=== PATIENT | male | born 1970 | race Caucasian/White ===

== ENCOUNTER 2016-12-14 20:00 | Emergency (ER) | payer OTHER ==
--- NOTE | 2016-12-14 22:42 | ED NURSING NOTES ---
Clinical Report - Nurses [facility] [address] [place] [address] 12/14/2016 20:01 Patient: JASBIR SALVADOR TRIAGE Triage time 20:Dec 14 2016. Acuity: LEVEL 3. Chief Complaint: (Might be HIV (+)). Alert. EVER COMA SCORE: Ever Coma Scale: 15- eyes open spontaneously (4); best verbal response- oriented x 4 (5); best motor response- obeys commands (6). --20:38 Peter Herring R.N. Alert. EVER COMA SCORE: Ever Coma Scale: 15- eyes open spontaneously (4); best verbal response- oriented x 4 (5); best motor response- obeys commands (6). --20:42 Peter Herring R.N. 20:40 12/14/16. BP: 129/93. HR: 90. RR: 16. O2 saturation: 97%. Temp: 97.5 F (oral). Pain level now: 08/10. Additional comments: Generalized pains. --20:42 Peter Herring R.N. Weight: 98.8 kg. Height/Length: 69 inches Per Patient. BMI: 32.2. --20:28 Peter Herring R.N. Medications Lipitor Oral 60 mg, at bedtime. Prazosin HCl Oral 2 mg, daily. --20:32 Peter Herring R.N. CarBAMazepine Oral 400 mg, 2x a day. --20:33 Peter Herring R.N. Zoloft Oral 50 mg, daily. --20:33 Peter Herring R.N. Strattera Oral uncertain (?). --20:33 Peter Herring R.N. GuaiFENesin ER Oral. --20:34 Peter Herring R.N. Aspirin Oral (Tablet 81 mg) 1 tablet, daily. --20:36 Peter Herring R.N. Cialis Oral (Tablet 5 mg) 1 tablet, daily. --20:44 Peter Herring R.N. Allergies Wellbutrin. Definite Severe (seizures) --20:38 Peter Herring R.N. Medication/allergy information source: the patient. --20:38 Peter Herring R.N. History Arrived by private vehicle. Historian: patient. Unaccompanied. Primary physician (Gilda Pangh). ( Told by his roommate that the girlfriend, whom he has intimate with, is HIV (+).). Onset. (about 1 hour ago). Treatment COMMERCIAL GLAZIER: None. PAST MEDICAL HX: Benign prostatic hypertrophy. Immunizations: up-to-date. SOCIAL HX: Heavy tobacco smoker- 1 pack per day. No alcohol use or drug use. No infectious disease exposure. ABUSE ASSESSMENT: No report of abuse. FALL RISK ASSESSMENT: Fall risk assessment completed. No fall risk identified. NUTRITIONAL RISK ASSESSMENT: The nutritional risk assessment revealed no deficiencies. FUNCTIONAL ASSESSMENT: Functional assessment: no impairments noted. LEARNING NEEDS ASSESSMENT: The learning needs assessment revealed no barriers. SKIN INTEGRITY ASSESSMENT: Skin integrity risk assessment completed. No skin integrity risk identified. --20:38 Peter Herring R.N. ( Pt states that he last had sex with his girlfriend was a week ago.). --22:47 Peter Herring R.N. PROBLEMS: Myocardial Infarction. Seizure. CVA - Cerebrovascular Accident. --20:32 Peter Herring R.N. ADDITIONAL SURGERIES: Inguinal Hernia Repair. --20:32 Peter Herring R.N. Interventions ID and allergy band on patient. To treatment room. --20:38 Peter Herring R.N. PHYSICAL ASSESSMENT Ambulatory to room. GENERAL / NEURO / PSYCH: Alert. Oriented X 4. HEENT: Mucous membranes are pink. RESPIRATORY: Respirations not labored. CVS: Normal heart rate and rhythm. Capillary refill less than 2 seconds. GI / : Abdomen soft and nontender. SKIN: Skin is warm and dry. --20:43 Peter Herring R.N. NURSING PROGRESS NOTES Patient gowned. Reassurance given. Patient identifiers checked. Call light placed in reach. Side rails up x 1. Bed placed in lowest position. Brakes of bed on. Patient ready for evaluation- chart flagged and ED physician notified. --20:43 Peter Herring R.N. 22:46. The patient is calm and resting quietly. Overall patient status- he states feels better. SKIN: Skin is warm and dry. Skin color within normal limits. --22:49 Peter Frances R.N. DISPOSITION / DISCHARGE Departure time: 22:49. Condition at departure: stable. No learning barriers present. Discharge instructions provided and reviewed with the patient. Patient verbalized understanding. Written instructions provided in Albanian. The patient was discharged home and accompanied by softball umpire. He left the Emergency Department ambulatory and via private vehicle. [employer] Catcher driving. FALL RISK ASSESSMENT: Fall risk assessment completed. No fall risk identified. --22:49 Peter Frances R.N. 22:41 12/14/16. BP: 140/91. HR: 70. RR: 14. O2 saturation: 97% on room air. Pain level now: 0/10. --22:49 Peter Frances R.N. Locked/Released at 12/14/2016 22:49 by Peter Frances R.N.
--- NOTE | 2016-12-14 22:42 | ED NURSING NOTES ---
Clinical Report - Nurses [facility] [address] [place] [address] 12/14/2016 20:01 Patient: JASBIR SALVADOR TRIAGE Triage time 20:Dec 14 2016. Acuity: LEVEL 3. Chief Complaint: (Might be HIV (+)). Alert. EVER COMA SCORE: Ever Coma Scale: 15- eyes open spontaneously (4); best verbal response- oriented x 4 (5); best motor response- obeys commands (6). --20:38 Peter Herring R.N. Alert. EVER COMA SCORE: Ever Coma Scale: 15- eyes open spontaneously (4); best verbal response- oriented x 4 (5); best motor response- obeys commands (6). --20:42 Peter Herring R.N. 20:40 12/14/16. BP: 129/93. HR: 90. RR: 16. O2 saturation: 97%. Temp: 97.5 F (oral). Pain level now: 08/10. Additional comments: Generalized pains. --20:42 Peter Herring R.N. Weight: 98.8 kg. Height/Length: 69 inches Per Patient. BMI: 32.2. --20:28 Peter Herring R.N. Medications Lipitor Oral 60 mg, at bedtime. Prazosin HCl Oral 2 mg, daily. --20:32 Peter Herring R.N. CarBAMazepine Oral 400 mg, 2x a day. --20:33 Peter Herring R.N. Zoloft Oral 50 mg, daily. --20:33 Peter Herring R.N. Strattera Oral uncertain (?). --20:33 Peter Herring R.N. GuaiFENesin ER Oral. --20:34 Peter Herring R.N. Aspirin Oral (Tablet 81 mg) 1 tablet, daily. --20:36 Peter Herring R.N. Cialis Oral (Tablet 5 mg) 1 tablet, daily. --20:44 Peter Herring R.N. Allergies Wellbutrin. Definite Severe (seizures) --20:38 Peter Herring R.N. Medication/allergy information source: the patient. --20:38 Peter Herring R.N. History Arrived by private vehicle. Historian: patient. Unaccompanied. Primary physician (Gilda Pangh). ( Told by his roommate that the girlfriend, whom he has intimate with, is HIV (+).). Onset. (about 1 hour ago). Treatment CLIENT TECHNICAL SUPPORT ASSOCIATE: None. PAST MEDICAL HX: Benign prostatic hypertrophy. Immunizations: up-to-date. SOCIAL HX: Heavy tobacco smoker- 1 pack per day. No alcohol use or drug use. No infectious disease exposure. ABUSE ASSESSMENT: No report of abuse. FALL RISK ASSESSMENT: Fall risk assessment completed. No fall risk identified. NUTRITIONAL RISK ASSESSMENT: The nutritional risk assessment revealed no deficiencies. FUNCTIONAL ASSESSMENT: Functional assessment: no impairments noted. LEARNING NEEDS ASSESSMENT: The learning needs assessment revealed no barriers. SKIN INTEGRITY ASSESSMENT: Skin integrity risk assessment completed. No skin integrity risk identified. --20:38 Peter Herring R.N. ( Pt states that he last had sex with his girlfriend was a week ago.). --22:47 Peter Herring R.N. PROBLEMS: Myocardial Infarction. Seizure. CVA - Cerebrovascular Accident. --20:32 Peter Herring R.N. ADDITIONAL SURGERIES: Inguinal Hernia Repair. --20:32 Peter Herring R.N. Interventions ID and allergy band on patient. To treatment room. --20:38 Peter Herring R.N. PHYSICAL ASSESSMENT Ambulatory to room. GENERAL / NEURO / PSYCH: Alert. Oriented X 4. HEENT: Mucous membranes are pink. RESPIRATORY: Respirations not labored. CVS: Normal heart rate and rhythm. Capillary refill less than 2 seconds. GI / : Abdomen soft and nontender. SKIN: Skin is warm and dry. --20:43 Peter Herring R.N. NURSING PROGRESS NOTES Patient gowned. Reassurance given. Patient identifiers checked. Call light placed in reach. Side rails up x 1. Bed placed in lowest position. Brakes of bed on. Patient ready for evaluation- chart flagged and ED physician notified. --20:43 Peter Herring R.N. 22:46. The patient is calm and resting quietly. Overall patient status- he states feels better. SKIN: Skin is warm and dry. Skin color within normal limits. --22:49 Peter Frances R.N. DISPOSITION / DISCHARGE Departure time: 22:49. Condition at departure: stable. No learning barriers present. Discharge instructions provided and reviewed with the patient. Patient verbalized understanding. Written instructions provided in Korean. The patient was discharged home and accompanied by accreditation specialist. He left the Emergency Department ambulatory and via private vehicle. Pond Sawyer driving. FALL RISK ASSESSMENT: Fall risk assessment completed. No fall risk identified. --22:49 Peter Frances R.N. 22:41 12/14/16. BP: 140/91. HR: 70. RR: 14. O2 saturation: 97% on room air. Pain level now: 0/10. --22:49 Peter Frances R.N. Locked/Released at 12/14/2016 22:49 by Peter Frances R.N.
--- NOTE | 2016-12-14 22:42 | ED ORDER SUMMARY ---
..... Patient: JASBIR SALVADOR OrderSheet [facility] VisitID: [id number] [address] [place] [address] 46y, M Registration Date/Time: 12/14/2016 ORDER SHEET Weight: 98.8 kg Allergies: Wellbutrin GENERAL ORDERS: HIV I and II Urgent (21:01 12/14/2016 Karlie A.R.N.P.) ([facility] 21:10 Rashmi) (22:34 Jessenia Talavera) MEDICATION ORDERS: IV FLUIDS: ORDER SHEET NOTES: [Electronically signed by Peter Frances R.N. (22:49 12/14/2016)] [Electronically signed by Yuni LopezN.POdette (23:02 12/14/2016)] [Electronically locked/signed by Peter Frances R.N. (22:49 12/14/2016)]
--- NOTE | 2016-12-14 22:42 | ED ORDER SUMMARY ---
..... Patient: JASBIR SALVADOR OrderSheet [facility] VisitID: [id number] [address] [place] [address] 46y, M Registration Date/Time: 12/14/2016 ORDER SHEET Weight: 98.8 kg Allergies: Wellbutrin GENERAL ORDERS: HIV I and II Urgent (21:01 12/14/2016 Karlie A.R.N.P.) ([facility] 21:10 Rashmi) (22:34 Jessenia Talavera) MEDICATION ORDERS: IV FLUIDS: ORDER SHEET NOTES: [Electronically signed by Peter Frances R.N. (22:49 12/14/2016)] [Electronically signed by Yuni LopezN.POdette (23:02 12/14/2016)] [Electronically locked/signed by Peter Frances R.N. (22:49 12/14/2016)]
--- NOTE | 2016-12-14 22:42 | ED CLINICAL REPORT ---
Clinical Report - Physicians/Mid Levels [facility] [address] [place] [address] 12/14/2016 20:01 Patient: JASBIR SALVADOR Time Seen: 20:56; initial patient contact, initial documentation, patient care assumed. Arrived- By private vehicle. Historian- patient. HISTORY OF PRESENT ILLNESS Chief Complaint: (std testing). This started just prior to arrival. No penile discharge, discomfort with urination, urinary frequency, genital lesion or testicular pain. No urgency of urination or flank pain. The patient has had unprotected intercourse with a single partner several times. (having unprotected intercourse with same female partner for over a year, found out this evening that she is hiv pos, would like testing for hiv). Similar symptoms previously: None. Recent medical care: Not recently seen/assessed. REVIEW OF SYSTEMS No fever, abdominal pain, vomiting or diarrhea. All systems otherwise negative, except as recorded above. PAST HISTORY See nurses notes. ( PROBLEMS: Myocardial Infarction. Seizure. CVA - Cerebrovascular Accident. --20:32 Peter Herring, R.N. ADDITIONAL SURGERIES: Inguinal Hernia Repair. --20:32 Peter Herring, R.N.). SOCIAL HISTORY Heavy tobacco smoker. No alcohol use or drug use. No recent travel. Is a local resident. FAMILY HISTORY Negative. ADDITIONAL NOTES The nursing notes have been reviewed with agreement regarding the chief complaint, HPI, ROS, PMH and patient medications and allergies. PHYSICAL EXAM Vital Signs: 12/14/2016 20:40 BP: 129/93. HR: 90. RR: 16. O2 saturation: 97%. Temp: 97.5 F. Pain level now: 08/10. Have been reviewed as normal and appear to be correct. Appearance: Alert. Oriented X3. No acute distress. ENT: Normal external inspection. Pharynx normal. Neck: Neck supple. CVS: Heart sounds normal. Respiratory: No respiratory distress. Breath sounds normal. Abdomen: Soft and nontender. Mildly obese. Back: Normal external inspection. Skin: Skin warm and dry. Normal skin color. No rash. Normal skin turgor. Extremities: Extremities exhibit normal ROM. No lower extremity edema. Neuro: Oriented X 3. No motor deficit. No sensory deficit. LABS, X-RAYS, AND EKG Laboratory Tests: [id number]: (JOAQUIN: 12/14/2016 21:20) ( MsgRcvd 12/14/2016 22:23) Final results Test Result Flag Units (Reference) HIV-1 P24 ANTIGEN NEGATIVE (NEGATIVE) HIV-1 AND OR HIV-2 ANTIBODY NEGATIVE (NEGATIVE) . PROGRESS AND PROCEDURES Patient counseled in person regarding the patient's stable condition, test results and diagnosis. 22:39. Differential Diagnosis: Other possible considerations: std, hiv. Above considerations are based on history, physical exam and laboratory data. Differential diagnosis was discussed with patient. Disposition: Discharged home in good and unchanged condition (22:42). Condition: good and stable. CLINICAL IMPRESSION Exposure to STD: HIV. INSTRUCTIONS No sexual contact. Warnings: GENERAL WARNINGS: Return or contact your physician immediately if your condition worsens or changes unexpectedly, if not improving as expected, or if other problems arise. Specifically return if problem worsens. Follow-up: Follow up with your doctor in about one week as needed. Call for an appointment. Summary of care provided to patient. Understanding of the discharge instructions verbalized by patient. (Electronically signed by Yuni Lopez A.R.N.P. 12/14/2016 23:02)
--- NOTE | 2016-12-14 22:42 | ED CLINICAL REPORT ---
Clinical Report - Physicians/Mid Levels [facility] [address] [place] [address] 12/14/2016 20:01 Patient: JASBIR SALVADOR Time Seen: 20:56; initial patient contact, initial documentation, patient care assumed. Arrived- By private vehicle. Historian- patient. HISTORY OF PRESENT ILLNESS Chief Complaint: (std testing). This started just prior to arrival. No penile discharge, discomfort with urination, urinary frequency, genital lesion or testicular pain. No urgency of urination or flank pain. The patient has had unprotected intercourse with a single partner several times. (having unprotected intercourse with same female partner for over a year, found out this evening that she is hiv pos, would like testing for hiv). Similar symptoms previously: None. Recent medical care: Not recently seen/assessed. REVIEW OF SYSTEMS No fever, abdominal pain, vomiting or diarrhea. All systems otherwise negative, except as recorded above. PAST HISTORY See nurses notes. ( PROBLEMS: Myocardial Infarction. Seizure. CVA - Cerebrovascular Accident. --20:32 Peter Herring, R.N. ADDITIONAL SURGERIES: Inguinal Hernia Repair. --20:32 Peter Herring, R.N.). SOCIAL HISTORY Heavy tobacco smoker. No alcohol use or drug use. No recent travel. Is a local resident. FAMILY HISTORY Negative. ADDITIONAL NOTES The nursing notes have been reviewed with agreement regarding the chief complaint, HPI, ROS, PMH and patient medications and allergies. PHYSICAL EXAM Vital Signs: 12/14/2016 20:40 BP: 129/93. HR: 90. RR: 16. O2 saturation: 97%. Temp: 97.5 F. Pain level now: 08/10. Have been reviewed as normal and appear to be correct. Appearance: Alert. Oriented X3. No acute distress. ENT: Normal external inspection. Pharynx normal. Neck: Neck supple. CVS: Heart sounds normal. Respiratory: No respiratory distress. Breath sounds normal. Abdomen: Soft and nontender. Mildly obese. Back: Normal external inspection. Skin: Skin warm and dry. Normal skin color. No rash. Normal skin turgor. Extremities: Extremities exhibit normal ROM. No lower extremity edema. Neuro: Oriented X 3. No motor deficit. No sensory deficit. LABS, X-RAYS, AND EKG Laboratory Tests: [id number]: (JOAQUIN: 12/14/2016 21:20) ( MsgRcvd 12/14/2016 22:23) Final results Test Result Flag Units (Reference) HIV-1 P24 ANTIGEN NEGATIVE (NEGATIVE) HIV-1 AND OR HIV-2 ANTIBODY NEGATIVE (NEGATIVE) . PROGRESS AND PROCEDURES Patient counseled in person regarding the patient's stable condition, test results and diagnosis. 22:39. Differential Diagnosis: Other possible considerations: std, hiv. Above considerations are based on history, physical exam and laboratory data. Differential diagnosis was discussed with patient. Disposition: Discharged home in good and unchanged condition (22:42). Condition: good and stable. CLINICAL IMPRESSION Exposure to STD: HIV. INSTRUCTIONS No sexual contact. Warnings: GENERAL WARNINGS: Return or contact your physician immediately if your condition worsens or changes unexpectedly, if not improving as expected, or if other problems arise. Specifically return if problem worsens. Follow-up: Follow up with your doctor in about one week as needed. Call for an appointment. Summary of care provided to patient. Understanding of the discharge instructions verbalized by patient. (Electronically signed by Yuni Lopez A.R.N.P. 12/14/2016 23:02)
--- NOTE | 2016-12-14 23:02 | ED MED RECONCILIATION SUMMARY ---
Patient: JASBIR SALVADOR Medication Reconciliation Report [facility] VisitID: [id number] [address] [place] [address] 46y, M Registration Date/Time: 12/14/2016 Weight: 98.8 kg Height/Length: 69 in. BMI: 32.2 ALLERGIES: Wellbutrin The patient's Home Medications are listed below: THE FOLLOWING MEDICATIONS NEED TO BE RECONCILED: Aspirin Oral (81 mg) 1 tablet, daily CarBAMazepine Oral 400 mg, 2x a day Cialis Oral (5 mg) 1 tablet, daily GuaiFENesin ER Oral Lipitor Oral 60 mg, at bedtime Prazosin HCl Oral 2 mg, daily Strattera Oral uncertain (?) Zoloft Oral 50 mg, daily The source(s) of the original Home Medication information: patient The following Medications were given to the patient in the Emergency Department: None. The following Medications were prescribed to the patient: None.
--- NOTE | 2016-12-14 23:02 | ED DISCHARGE INSTRUCTIONS ---
Patient: JASBIR SALVADOR General Instructions [facility] VisitID: [id number] [place] [address] 46y, M Registration Date/Time: 12/14/2016 Exposure to STD: HIV. INSTRUCTIONS No sexual contact. Warnings: GENERAL WARNINGS: Return or contact your physician immediately if your condition worsens or changes unexpectedly, if not improving as expected, or if other problems arise. Specifically return if problem worsens. Follow-up: Follow up with your doctor in about one week as needed. Call for an appointment. Summary of care provided to patient. Understanding of the discharge instructions verbalized by patient. ADDITIONAL INFORMATION STD, Suspected [R/O Gc & Chlamydia: Culture Only] Your symptoms suggest that you may have a STD (sexually transmitted disease). The most common bacteria that cause STD's are chlamydia and gonorrhea. Both are highly contagious and are passed by sexual contact with an infected partner. Symptoms begin within 1-3 weeks after exposure. There is usually a discharge from the penis or vagina and burning during urination. Many women with this infection will have only mild symptoms or no symptoms at all early in the disease. Culture tests have been taken. These will show if you have an infection with chlamydia or gonorrhea. This infection can be treated and cured with antibiotic medication. Home Care: 1) Avoid sexual activity until you know that your test result is negative. 2) If a culture was done and it is positive: Both you and your sexual partner need to be treated, even if your partner has no symptoms. Contact your doctor or go to an urgent care clinic or the Public Health Department to be examined and treated. Avoid sexual activity until both you and your partner have completed all antibiotic medicine and told that you are no longer contagious. Learn about safe sex practices and use these in the future. The safest sex is with a partner who has tested negative and only has sex with you. Condoms offer protection from spreading some sexually transmitted diseases including gonorrhea, chlamydia and HIV, but are not a guarantee. 3) Learn about safe sex practices and use these in the future. The safest sex is with a partner who has tested negative and only has sex with you. Condoms offer protection from spreading some sexually transmitted diseases including Gonorrhea, Chlamydia and HIV, but are not a guarantee. Follow Up with your doctor or as advised by our staff. You may call us in three days for the results of your culture, or as directed. If your culture test is positive and you are treated, another culture should be taken 4-6 weeks after treatment to be sure the infection has cleared. Follow up with your doctor or the Public Health Department for complete STD screening, including HIV testing. For more information about STDs, contact the National STD Hotline: . Get Prompt Medical Attention if any of the following occur: -- Fever over 100.4 F (38.0 C) -- New or increasing lower abdominal pain or back pain -- Unexpected vaginal bleeding -- Weakness, dizziness or fainting -- Repeated vomiting -- Inability to urinate due to pain -- Rash or joint pain -- Painful open sores on the penis or around the outer vagina -- Enlarged painful lymph nodes (lumps) in the groin -- Testicle pain or scrotal swelling in men HIV - AIDS HIV (Human Immune-deficiency Virus) is a virus that attacks the immune system. It decreases the bodys ability to fight infection and to stop the growth of certain types of cancer cells. Being HIV positive is not the same as having AIDS. AIDS (Acquired Immune-deficiency Syndrome) is a complication of an HIV infection (see below). Early in HIV disease, you may have no symptoms. As the disease progresses, and the immune system weakens, HIV symptoms may appear. These include yeast infections of the mouth, fevers, prolonged diarrhea, sores on the sides of the tongue, loss of or altered feeling in the hands or feet, infection with shingles or meningitis. Women may develop recurrent or persistent yeast infection of the vagina, pelvic infection, or an abnormal Pap smear. After infection with HIV, it can take years before developing AIDS. AIDS is diagnosed when an illness occurs that would rarely occur in a person with a normal immune system. These diseases include PCP (pneumocystis) pneumonia, lymphoma, tuberculosis (TB), Kaposi's sarcoma, and others. If you have a positive HIV test, you can spread the virus to others. This is true even if you do not have any symptoms of HIV or AIDS. HIV is most often transmitted by sexual contact (through blood or semen) or by sharing needles/syringes during IV drug use. Routine non-sexual contact does not transmit the disease. Therefore, a person with HIV virus is not contagious to the general population. Without treatment, HIV will almost always lead to AIDS. However, powerful drugs are now available that slow down the growth of the virus. These drugs do not cure HIV infection but make it possible for people with HIV to live a long time. Drug therapy for HIV is usually started based on three factors: 1) the viral load (the amount of virus in your blood); 2) the CD4 cell count (a measure of your immune system); and 3) your symptoms. Home Care: 1) If you have been recently diagnosed with HIV, this news can be a great shock. Psychotherapy, counseling and group support will be very helpful in understanding your feelings, and helping you deal with anxiety and depression. Ask for help. Don't try to get through this on your own. A support system is essential for your physical and emotional health. 2) Develop a take-charge attitude about your own health. Learn the facts about HIV/AIDS. Learn ways to strengthen your immune system through diet, exercise and stress management. 3) Talk to your doctor about the medicines used to treat your condition. Become a participant in your health care. This will help you feel more in control of your health and your life and combat feelings of helplessness. 4) Inform your current and recent sexual contacts of your diagnosis so that they may be tested. For testing, your partner should contact their doctor or the Public Health Dept. Learn about safe-sex practices. Inform any future sexual partners of your diagnosis. Condoms offer protection from spreading HIV, but are not a guarantee. Follow Up with your doctor, or as advised by our staff. You will need routine blood testing to monitor the strength of your immune system. If you are HIV positive without symptoms, watch for symptoms of HIV disease listed above and contact your doctor if these appear. For more information, look at these web sites: http://www.webmd.com/hiv-aids/guide/QRE-FNOM-nwikehtg-facts http://www.aidsinfonet.org/factsheets.php [NOTE: A radiologist will review any X-rays that were taken. We will notify you of any new findings that may affect your care.] Get Prompt Medical Attention if any of the following occur: -- Unexplained fever over 100.4 F (38.0 C) -- Persistent cough or coughing up blood -- Shortness of breath or difficulty breathing -- Severe headache or stiff neck -- Painful, burning rash on one side of the body -- White spots in the mouth -- Vaginal discharge or lower abdominal pain -- Difficulties with your vision -- Extreme weakness, fatigue, or unexplained weight loss You have been given the following additional information: STD, Suspected (Culture Only) HIV-AIDS, New Dx (Electronically signed by Yuni Lopez A.R.N.P. 12/14/2016 23:02)
--- NOTE | 2016-12-14 23:02 | ED MAR SUMMARY ---
..... Medication Administration Record [facility] [address] [place], [place] [id number] Patient: JASBIR SALVADOR Visit ID: [id number] 46y, M Weight: 98.8 kg Height/Length: 69 in BMI: 32.2 ALLERGIES: Wellbutrin
--- NOTE | 2016-12-14 23:02 | ED MED RECONCILIATION SUMMARY ---
Patient: JASBIR SALVADOR Medication Reconciliation Report [facility] VisitID: [id number] [address] [place] [address] 46y, M Registration Date/Time: 12/14/2016 Weight: 98.8 kg Height/Length: 69 in. BMI: 32.2 ALLERGIES: Wellbutrin The patient's Home Medications are listed below: THE FOLLOWING MEDICATIONS NEED TO BE RECONCILED: Aspirin Oral (81 mg) 1 tablet, daily CarBAMazepine Oral 400 mg, 2x a day Cialis Oral (5 mg) 1 tablet, daily GuaiFENesin ER Oral Lipitor Oral 60 mg, at bedtime Prazosin HCl Oral 2 mg, daily Strattera Oral uncertain (?) Zoloft Oral 50 mg, daily The source(s) of the original Home Medication information: patient The following Medications were given to the patient in the Emergency Department: None. The following Medications were prescribed to the patient: None.
--- NOTE | 2016-12-14 23:02 | ED MAR SUMMARY ---
..... Medication Administration Record [facility] [address] [place], [place] [id number] Patient: JASBIR SALVADOR Visit ID: [id number] 46y, M Weight: 98.8 kg Height/Length: 69 in BMI: 32.2 ALLERGIES: Wellbutrin
== END 2016-12-14 22:49 | disposition home or self-care (01) ==
LOC: ED SRH 20:00
DX: Z20.6 Contact with and (suspected) exposure to human immunodeficiency virus [HIV] (principal); Z79.899 Other long term (current) drug therapy; Z79.82 Long term (current) use of aspirin; F17.210 Nicotine dependence, cigarettes, uncomplicated; Z88.8 Allergy status to other drugs, medicaments and biological substances; I25.2 Old myocardial infarction; Z86.79 Personal history of other diseases of the circulatory system
CPT/HCPCS: 90074; 90364; 92863